=== PATIENT | female | born 1990 | race African-American/Black ===

== ENCOUNTER 2017-08-21 01:00 | Emergency (ER) | payer OTHER ==
[~2017-08-21] VITALS: Ht 157.5 cm; Wt 79.0 kg
[2017-08-21 04:41] VITALS: BP 112/85
== END 2017-08-21 05:57 | disposition left against medical advice (07) ==
LOC: ER 01:00
DX: Z53.21 Procedure and treatment not carried out due to patient leaving prior to being seen by health care provider (principal); J45.909 Unspecified asthma, uncomplicated; G43.909 Migraine, unspecified, not intractable, without status migrainosus; F17.210 Nicotine dependence, cigarettes, uncomplicated; F12.10 Cannabis abuse, uncomplicated

== ENCOUNTER 2018-04-03 21:12 | Emergency (ER) | payer SELFPAY ==
[~2018-04-03] VITALS: Ht 157.5 cm; Wt 78.1 kg
[2018-04-03] MEDS ORDERED: ACETAMINOPHEN 325MG TABLET PO STA (23:52)
[2018-04-04 01:24] LABS: BASOPHILS % 0.9 % (0.0-2.0); EOSINOPHILS % 3.6 % (0.0-5.0); MEAN CORPUSCULAR HEMOGLOBIN 33.9 pg (28.0-32.0); MEAN CORPUSCULAR VOLUME 99.3 fL (81.0-99.0); MEAN PLATELET VOLUME 9.1 fl (7.4-10.4); MONOCYTES % 6.2 % (2.0-8.0); NEUTROPHILS % 40.3 % (40.0-76.0); PLATELET 273 x1000/uL (130-400); RED BLOOD CELL COUNT 3.83 mill/uL (4.2-5.4); RED CELL DISTRIBUTION WIDTH 15.3 % (11.6-14.6)
[2018-04-04 01:26] LABS: CHLORIDE 108 mEq/L (98-107)
[2018-04-04 01:34] LABS: PROTHROMBIN TIME 10.9 sec (9.4-11.6)
[2018-04-04 01:39] VITALS: BP 122/75
[2018-04-04] MEDS ORDERED: KETOROLAC 60MG/2ML VIAL IM ONE (01:45)
[2018-04-04 01:51] LABS: CLARITY URINE CLEAR (CLEAR); COLOR URINE YELLOW (YELLOW); KETONES URINE NEGATIVE (NEGATIVE); LEUKOCYTE ESTERASE URINE NEGATIVE (NEGATIVE); NITRITE URINE NEGATIVE (NEGATIVE); OCCULT BLOOD URINE NEGATIVE (NEGATIVE); PROTEIN URINE NEGATIVE (NEGATIVE); SPECIFIC GRAVITY URINE 1.027 (1.005-1.030)
[2018-04-04 02:03] LABS: *AMPHETAMINES SCREEN URINE NEGATIVE (NEGATIVE); *BARBITURATES SCREEN URINE NEGATIVE (NEGATIVE); *BENZODIAZEPINES SCREEN URINE NEGATIVE (NEGATIVE); *COCAINE SCREEN URINE NEGATIVE (NEGATIVE); METHADONE URINE SCREEN NEGATIVE (NEGATIVE); OPIATES URINE SCREEN NEGATIVE (NEGATIVE); PHENCYCLIDINE URINE SCREEN NEGATIVE (NEGATIVE)
[2018-04-04 02:14] LABS: CANNABINOID URINE SCREEN PRESUMTIVE POSITIVE (NEGATIVE)
[2018-04-04] MEDS ORDERED: LIDOCAINE HCL 1% 20ML VIAL (Pyxis) INJ MC ONE (02:30)
[2018-04-04] MEDS ORDERED: AZITHROMYCIN 500 MG TABLET PO ONE (02:30)
[2018-04-04] MEDS ORDERED: CEFTRIAXONE SODIUM 250 MG/VIAL IM ONE (02:30)
[2018-04-04] MEDS ORDERED: LIDOCAINE HCL/PF 1% 10 MG/ML 30ML VIAL INFIL SCH (03:00)
== END 2018-04-04 03:46 | disposition home or self-care (01) ==
LOC: ER 21:41
DX: N76.0 Acute vaginitis (principal); B96.89 Other specified bacterial agents as the cause of diseases classified elsewhere; J45.909 Unspecified asthma, uncomplicated; F12.10 Cannabis abuse, uncomplicated; F17.200 Nicotine dependence, unspecified, uncomplicated; Z98.890 Other specified postprocedural states
CPT/HCPCS: 36415; 76830; 76856; 80053; 80305; 81003; 81025; 83690; 85025; 85610; 87210; 87491; 87591; 96372; 99285; J0696; J1885; J3490; Z7610

== ENCOUNTER 2018-04-15 07:53 | Emergency (ER) | payer SELFPAY ==
[~2018-04-15] VITALS: Ht 157.5 cm; Wt 73.0 kg
[2018-04-15] MEDS ORDERED: KETOROLAC 30MG/ML VIAL IV ONE (11:30)
[2018-04-15 13:00] LABS: CLARITY URINE CLEAR (CLEAR); COLOR URINE YELLOW (YELLOW); KETONES URINE TRACE (NEGATIVE); LEUKOCYTE ESTERASE URINE NEGATIVE (NEGATIVE); NITRITE URINE NEGATIVE (NEGATIVE); OCCULT BLOOD URINE NEGATIVE (NEGATIVE); PH URINE 5.5 (4.5-8.0); PROTEIN URINE TRACE (NEGATIVE); SPECIFIC GRAVITY URINE 1.032 (1.005-1.030)
[2018-04-15 14:14] VITALS: BP 108/64
[2018-04-17 19:11] LABS: CHLAMYDIA TRACHOMATIS NAA Negative (Negative); NEISSERIA GONORRHOEAE NAA Negative (Negative)
== END 2018-04-15 14:42 | disposition home or self-care (01) ==
LOC: ER 09:16
DX: N76.0 Acute vaginitis (principal); J45.909 Unspecified asthma, uncomplicated; F17.210 Nicotine dependence, cigarettes, uncomplicated; F12.10 Cannabis abuse, uncomplicated; Z98.890 Other specified postprocedural states
CPT/HCPCS: 76830; 76856; 81003; 81025; 87491; 87591; 96374; 99285; J1885

== ENCOUNTER 2019-04-25 11:08 | Emergency (ER) | payer MEDICAID ==
[~2019-04-25] VITALS: Ht 162.6 cm; Wt 77.0 kg
[2019-04-25] MEDS ORDERED: KETOROLAC 30MG/ML VIAL IV STA (11:52)
[2019-04-25] MEDS ORDERED: ONDANSETRON HCL 4MG/2ML INJ IV STA (11:52)
[2019-04-25] MEDS ORDERED: SODIUM CHLORIDE 0.9% 1,000 ML IV ONE (11:52)
[2019-04-25] MEDS ORDERED: SUMATRIPTAN SUCCINATE 6MG/0.5ML VIAL SUBCUT ONE (12:00)
[2019-04-25 12:06] LABS: BASOPHILS % 0.5 % (0.0-2.0); CHLORIDE 106 mEq/L (98-107); EOSINOPHILS % 5.5 % (0.0-5.0); HEMATOCRIT. 36.6 % (36.0-48.0); HEMOGLOBIN. 12.5 g/dL (12.0-16.0); LYMPHOCYTES % 42.8 % (20.0-50.0); MEAN CORPUSCULAR HEMOGLOBIN 33.4 pg (28.0-32.0); MEAN PLATELET VOLUME 8.9 fl (7.4-10.4); MONOCYTES % 7.5 % (2.0-8.0); NEUTROPHILS % 43.7 % (40.0-76.0); PLATELET 283 x1000/uL (130-400); RED BLOOD CELL COUNT 3.74 mill/uL (4.2-5.4); RED CELL DISTRIBUTION WIDTH 16.2 % (11.6-14.6)
[2019-04-25 12:44] LABS: CLARITY URINE CLEAR (CLEAR); COLOR URINE YELLOW (YELLOW); KETONES URINE TRACE (NEGATIVE); LEUKOCYTE ESTERASE URINE NEGATIVE (NEGATIVE); NITRITE URINE NEGATIVE (NEGATIVE); OCCULT BLOOD URINE NEGATIVE (NEGATIVE); PH URINE 8.5 (4.5-8.0); PROTEIN URINE NEGATIVE (NEGATIVE); SPECIFIC GRAVITY URINE 1.028 (1.005-1.030)
[2019-04-25 13:42] VITALS: BP 126/86
== END 2019-04-25 13:47 | disposition home or self-care (01) ==
LOC: ER 11:08
DX: G43.909 Migraine, unspecified, not intractable, without status migrainosus (principal); J45.909 Unspecified asthma, uncomplicated; F41.9 Anxiety disorder, unspecified; F17.290 Nicotine dependence, other tobacco product, uncomplicated; Z98.890 Other specified postprocedural states
CPT/HCPCS: 36415; 80053; 81003; 81025; 85025; 96372; 96374; 96375; 99283; J1885; J2405; J3030; J7030; Z7610

== ENCOUNTER 2019-05-07 08:35 | Emergency (ER) | payer MEDICAID ==
[~2019-05-07] VITALS: Ht 157.5 cm; Wt 75.0 kg
[2019-05-07] MEDS ORDERED: IBUPROFEN 800MG TABLET PO ONE (09:15)
[2019-05-07 09:54] VITALS: BP 118/79
== END 2019-05-07 09:59 | disposition home or self-care (01) ==
LOC: ER 08:35
DX: S60.221A Contusion of right hand, initial encounter (principal); F41.9 Anxiety disorder, unspecified; J45.909 Unspecified asthma, uncomplicated; G43.909 Migraine, unspecified, not intractable, without status migrainosus; Z98.890 Other specified postprocedural states; W23.0XXA Caught, crushed, jammed, or pinched between moving objects, initial encounter; Y93.89 Activity, other specified; Y92.89 Other specified places as the place of occurrence of the external cause; Y99.8 Other external cause status
CPT/HCPCS: 73130; 81025; 99283

== ENCOUNTER 2019-07-18 08:33 | Emergency (ER) | payer SELFPAY ==
[~2019-07-18] VITALS: Ht 157.5 cm; Wt 82.0 kg
[2019-07-18] MEDS ORDERED: SODIUM CHLORIDE 0.9% 1,000 ML IV ONE (09:45)
[2019-07-18] MEDS ORDERED: KETOROLAC 30MG/ML VIAL IV ONE (09:45)
[2019-07-18] MEDS ORDERED: METOCLOPRAMIDE HCL 10MG/2ML VIAL IV ONE (09:45)
[2019-07-18 09:55] VITALS: BP 133/87
== END 2019-07-18 11:10 | disposition home or self-care (01) ==
LOC: ER 08:33
DX: G43.909 Migraine, unspecified, not intractable, without status migrainosus (principal); F41.9 Anxiety disorder, unspecified; J45.909 Unspecified asthma, uncomplicated; Z98.890 Other specified postprocedural states
CPT/HCPCS: 96374; 96375; 99283; J1885; J2765; J7030